=== PATIENT | male | born 1970 | race Caucasian/White ===

== ENCOUNTER → 2016-12-22 | Outpatient (CLI) | payer OTHER ==
[~2016-12-22] VITALS: Ht 185.4 cm; Wt 93.0 kg
[~2016-12-22] MED LIST: CYANOCOBALAM1000 MCG PO; IBUPROFEN400 MG PO; MAGNESIUM OXID200 MG PO; PROTONIX20 MG PO; VITAMIN B125000 MCG PO; VITAMIN D400 UNI1 PO
== END | disposition home or self-care (01) ==
LOC: AMB 06:57
PROC: 0DB98ZX Excision of Duodenum, Via Natural or Artificial Opening Endoscopic, Diagnostic (ICD-10-PCS; principal; 2016-12-22)
PROC: 0DB48ZX Excision of Esophagogastric Junction, Via Natural or Artificial Opening Endoscopic, Diagnostic (ICD-10-PCS; principal; 2016-12-22)
DX: K26.9 Duodenal ulcer, unspecified as acute or chronic, without hemorrhage or perforation (principal); K22.70 Barrett's esophagus without dysplasia; K21.9 Gastro-esophageal reflux disease without esophagitis; R10.13 Epigastric pain; K31.7 Polyp of stomach and duodenum; R01.1 Cardiac murmur, unspecified
CPT/HCPCS: 88305; 88342 TC; J2250; J3010

== ENCOUNTER 2018-01-22 12:22 | Day surgery (SDC) | payer OTHER ==
[~2018-01-22] VITALS: Ht 185.4 cm; Wt 99.0 kg
[~2018-01-22 12:22] MED LIST changes: +OMEGA-3 + VITA1 EAC2 PO; -PROTONIX20 MG PO; +PROTONIX40 MG PO; +VITAMIN D31000 UNI2 PO; -VITAMIN D400 UNI1 PO
[2018-01-22] MEDS ORDERED: MIRALAX17 GM PO (12:47)
[2018-01-22] MEDS ORDERED: MAALOX ADVANCE355 ML PO (12:48)
[2018-01-22 12:56] VITALS: BP 142/89
[2018-01-22 15:45] VITALS: BP 137/74
[2018-01-22 16:41] VITALS: BP 126/71
== END 2018-01-22 16:55 | disposition home or self-care (01) ==
LOC: SDC 12:22
PROC: 0SBD4ZZ Excision of Left Knee Joint, Percutaneous Endoscopic Approach (ICD-10-PCS; principal; 2018-01-22)
DX: S83.242A Other tear of medial meniscus, current injury, left knee, initial encounter (principal); E66.9 Obesity, unspecified; K21.9 Gastro-esophageal reflux disease without esophagitis; E78.00 Pure hypercholesterolemia, unspecified; M41.9 Scoliosis, unspecified; Z88.0 Allergy status to penicillin; Z91.041 Radiographic dye allergy status; Z83.49 Family history of other endocrine, nutritional and metabolic diseases; Z82.5 Family history of asthma and other chronic lower respiratory diseases
CPT/HCPCS: J0171; J2250; J2405; J3010; S0020